=== PATIENT | female | born 1970 | race Caucasian/White ===

== ENCOUNTER 2025-03-16 19:25 | Inpatient (IN) ==
--- NOTE | 2025-03-16 19:55 | Emergency Department Note ---
Impression & Plan Suicide gesture, Drug overdose, Anxiety and depression ED Provider Note NAME: VITOR MUNSON AGE: 55 SEX: F : 1970 ARRIVES VIA: Ambulance INFORMANT: Patient, ED PROVIDER(S): Tony Morrell DO CHIEF COMPLAINT: Overdose HPI: The patient is a 55-year-old female who presented to the emergency department for mental health evaluation. The patient overdosed on her prescription medication at approximately 6 PM. She states that she took approximately 6 tablets of 50 mg trazodone. She states that she did this because of anxiety and stressors today. She was having thoughts of hurting yourself. Her sister notified 911 and the patient arrived via ambulance voluntarily. The patient has been under significant stress about her work. She is also had legal problems and money issues. ROS: See above HPI for pertinent positives & negatives. A total of 10 systems reviewed and were otherwise negative. PAST MEDICAL HISTORY: See Below PAST SURGICAL HISTORY: See Below FAMILY HISTORY: See Below SOCIAL HISTORY: See Below HOME MEDICATIONS: See Below ALLERGIES: See Below VITALS: See Below PHYSICAL EXAMINATION: GENERAL: Patient is awake alert in no acute distress patient is resting comfortably and showing no signs of anxiety EYES: The conjunctivae are clear. The pupils are round and reactive. EARS, NOSE, MOUTH AND THROAT: The nose is without any evidence of any deformity. NECK: The neck is nontender and supple. RESPIRATORY: Normal respiratory effort is noted there is no evidence of wheezing rhonchi or rales CARDIOVASCULAR: Regular rate and rhythm noted there no murmurs rubs or gallops normal S1 normal S2. GASTROINTESTINAL: The abdomen is soft. Abdomen is nontender. MUSCULOSKELETAL/EXTREMITIES: There is no evidence of gross deformity full range of motion is noted in the hips and shoulders. SKIN: There is no obvious evidence of any rash. There are no petechiae, pallor or cyanosis noted. NEUROLOGIC: Patient is awake alert and oriented x3 strength is symmetric patellar reflexes are 2+ bilaterally. Gait was steady PSYCH: The patient makes good eye contact most of the evaluation. The patient's affect is slightly animated. The patient is currently denying any suicidal homicidal ideation but she does recount her attempt to take the medications earlier today. MEDICAL DECISION MAKING: The patient is a 55-year-old female who presented to the emergency department by ambulance for mental-health evaluation. The patient had an episode where she had suicidal ideation. She also took medications in an attempt to hurt herself. The patient was observed in the emergency department for a period of time. She did have some sleepiness but vital signs were reassuring. I discussed the patient's laboratory results with her. I discussed the patient's condition with the [facility]. I discussed the patient's condition with the mental health heel caser. Ultimately the patient was cleared for evaluation. The patient started to have denial that she had a suicidal gesture. The patient was felt to be in need of inpatient treatment. Triage Nursing notes reviewed. Prior medical records reviewed Vital Signs: reviewed and remarkable for no significant abnormalities Differential diagnosis: Mood disorder, infection, hypoglycemia, electrolyte abnormalities, cardiac sources, intracerebral event, toxicologic, trauma, neurologic, as well as other pathologies. ER treatment provided: See below Diagnostics interpreted by me: ECG: EKG was obtained in the emergency department. My interpretation is sinus rhythm at 87 bpm. There is no ectopy. There is no acute ST segment abnormalities noted. This was compared to a tracing from June 06, 2013. No changes were noted. Cardiac Monitoring: An order was placed for continuous cardiac monitoring. The monitor shows a rate of 88 bpm with sinus rhythm. Laboratory studies: As stated above and show below. Imaging studies: See below. Radiographic imaging was reviewed by myself Consultation(s): I discussed this case with the Poison Control Center. I discussed this case with the emergency department with heel caser. The patient was signed out to Dr. Carter at change of shift. Please see his note for continuation of care and further disposition. Past Med/Surg History Problem List (Updated 03/17/25 @ 01:14 by Tony Morrell DO) Anxiety and depression (Acute) Drug overdose (Acute) Suicide gesture (Acute) Medical History Depression with anxiety Surgical History H/O hernia repair (12/03/12) History of cholecystectomy (12/03/12) Previous back surgery (12/03/12) History of gastric bypass Social History Smoking Status: Former smoker Preferred Language: Bulgarian Feels Safe at Home: Yes Gender Identity: Female Allergies Allergies Allergy/AdvReac Type Severity Reaction Status Date / Time Penicillins Allergy Unknown HIVES Unverified 06/06/13 09:48 NSAIDS (Non-Steroidal AdvReac GASTRIC Unverified 06/06/13 09:48 Anti-Inflamma BYPASS Home Meds Home Medications Medication Instructions Recorded Confirmed cyclobenzaprine 10 mg tablet 10 mg PO TID PRN Muscle Pain ##0 06/29/10 03/17/25 gabapentin 600 mg tablet 600 mg PO BID #0 tabs 07/17/12 03/17/25 hydroxyzine HCl 10 mg tablet 25 mg PO TID #0 caps 02/06/13 03/17/25 lamotrigine 25 mg tablet (Lamictal) 25 mg PO 2XD #0 tabs 02/06/13 03/17/25 topiramate 100 mg tablet (Topamax) 100 mg PO DAILY #0 tabs 02/06/13 03/17/25 aspirin 81 mg tablet,delayed 81 mg PO DAILY 03/17/25 03/17/25 release atorvastatin 20 mg tablet (Lipitor) 20 mg PO DAILY 03/17/25 03/17/25 buspirone 30 mg tablet 30 mg PO BID 03/17/25 03/17/25 doxycycline hyclate 100 mg tablet 100 mg PO BID 03/17/25 03/17/25 levothyroxine 25 mcg capsule 25 mcg PO DAILY 03/17/25 03/17/25 linaclotide 145 mcg capsule 145 mcg PO DAILY 03/17/25 03/17/25 (Linzess) omeprazole 40 mg capsule,delayed 40 mg PO BID 03/17/25 03/17/25 release valacyclovir 500 mg tablet 500 mg PO DAILY 03/17/25 03/17/25 (Valtrex) vilazodone 10 mg tablet 30 mg PO DAILY 03/17/25 03/17/25 Results & Data (ED) Vital Signs Vital Signs - 24 hr 03/16/25 19:30 03/16/25 19:42 03/16/25 19:50 Temperature 36.7 C Temperature Source Oral Pulse Rate 82 80 Pulse Rate [Apical] Pulse Rhythm [Apical] Pulse Strength [Apical] Respiratory Rate 18 Respiratory Effort / Characteristics Respiratory Depth Respiratory Pattern Blood Pressure 107/79 Blood Pressure [Right Arm] Blood Pressure Mean 88 Blood Pressure Mean [Right Arm] Blood Pressure Position [Right Arm] Pulse Oximetry 99 98 Oxygen Delivery Method Room Air Room Air Sepsis Recent Fever Within 48 Hours No Sepsis New/Unexplained Change in Mental Status No Sepsis Action Taken by Nursing No Action Required 03/16/25 21:00 03/16/25 22:30 03/16/25 23:57 Temperature Temperature Source Pulse Rate 78 Pulse Rate [Apical] 80 85 Pulse Rhythm [Apical] Pulse Strength [Apical] Respiratory Rate 15 15 Respiratory Effort / Characteristics Non-Labored Spontaneous Non-Labored Spontaneous Respiratory Depth Normal Normal Respiratory Pattern Blood Pressure Blood Pressure [Right Arm] 108/71 107/70 Blood Pressure Mean Blood Pressure Mean [Right Arm] 83 82 Blood Pressure Position [Right Arm] Pulse Oximetry 96 96 Oxygen Delivery Method Room Air Room Air Sepsis Recent Fever Within 48 Hours Sepsis New/Unexplained Change in Mental Status Sepsis Action Taken by Nursing 03/17/25 00:00 Temperature Temperature Source Pulse Rate Pulse Rate [Apical] 76 Pulse Rhythm [Apical] Regular Pulse Strength [Apical] Normal Respiratory Rate 16 Respiratory Effort / Characteristics Non-Labored Spontaneous Respiratory Depth Normal Respiratory Pattern Regular Blood Pressure Blood Pressure [Right Arm] 106/72 Blood Pressure Mean Blood Pressure Mean [Right Arm] 83 Blood Pressure Position [Right Arm] Lying Pulse Oximetry 95 Oxygen Delivery Method Room Air Sepsis Recent Fever Within 48 Hours Sepsis New/Unexplained Change in Mental Status Sepsis Action Taken by [facility] Medications Current Medication List: was personally reviewed by me Laboratory Data Attestation: I reviewed the patient's lab results. 03/16/25 19:39 03/16/25 19:39 Lab Results 03/16/25 03/16/25 Range/Units 19:39 19:46 WBC 5.90 (4.8-10.8) K/ul RBC 4.07 L (4.20-5.40) M/uL Hgb 13.7 (12.0-16.0) g/dl Hct 41.2 (37.0-47.0) % MCV 101.2 H (80.0-100.0) fL MCH 33.7 (25.0-34.0) pg MCHC 33.3 (32.0-36.0) g/dL RDW Std Deviation 43.9 (36.4-46.3) fL RDW Coeff of Velia 11.8 (11.5-14.5) % Plt Count 216 (130-400) K/uL MPV 9.3 L (9.4-12.4) fL Immature Gran % (Auto) 0.3 % Neut % (Auto) 54.1 % Lymph % (Auto) 37.6 % [place] % (Auto) 5.3 % Eos % (Auto) 2.0 % Baso % (Auto) 0.7 % Neut # (Auto) 3.19 (1.40-6.50) K/uL Lymph # (Auto) 2.22 (1.20-3.40) K/uL [place] # (Auto) 0.31 (0.11-0.59) K/uL Eos # (Auto) 0.12 (0.00-0.50) K/uL Baso # (Auto) 0.04 (0.00-0.20) K/uL Immature Gran # (Auto) 0.02 (0.01-0.20) K/uL Sodium 141 (136-145) mmol/L Potassium 3.4 L (3.5-5.1) mmol/L Chloride 109 H (98-107) mmol/L Carbon Dioxide 25 (21-32) mmol/L Anion Gap 7 (3-11) BUN 8 (6-23) mg/dl Creatinine 0.91 (0.6-1.2) mg/dl Est Cr Clr Drug Dosing 66.6 ml/min eGFR 75.44 BUN/Creatinine Ratio 8.8 L (10-20) Glucose 122 H (70-99(Fasting)) mg/dl Calcium 9.1 (8.6-10.3) mg/dl Total Bilirubin 0.4 (0.2-1.0) mg/dl AST 36 (13-39) U/L ALT 36 (7-52) U/L Alkaline Phosphatase 55 (34-104) U/L Total Protein 6.4 (6.0-8.3) gm/dl Albumin 4.2 (3.4-5.0) gm/dl Globulin 2.2 L (2.5-4.0) gm/dl Albumin/Globulin Ratio 1.9 (0.9-2) TSH 2.402 (0.300-4.500) uIu/ml Urine Color Dark Yellow Urine Appearance Clear (Clear) Urine pH 6.5 (4.5-7.5) Ur Specific [place] 1.011 (1.000-1.030) Urine Protein Negative (Negative) Urine Glucose (UA) Negative (Negative) Urine Ketones Negative (Negative) Urine Blood Negative (Negative) Urine Nitrite Negative (Negative) Urine Bilirubin Negative (Negative) Urine Urobilinogen Negative (Negative) Ur Leukocyte Esterase Trace H (Negative) Urine WBC (Auto) 0-5 (0-5) /hpf Urine RBC (Auto) 0-2 (0-2) /hpf U Hyaline Cast (Auto) 0-2 (0-2) /lpf U Epithel Cells (Auto) 0-2 (0-2) /hpf Urine Bacteria (Auto) None Seen (None Seen) Urine Test Negative (Negative) Urine Comment Salicylates < 3.0 L (3.0-30) mg/dl Urine Opiates Screen Neg (Neg) Ur Methadone, Qual Neg (Neg) Urine Fentanyl Screen Neg (Neg) Acetaminophen < 3 L (10-30) ug/ml Urine Barbiturates Neg (Neg) Ur Phencyclidine (PCP) Neg (Neg) U Amphetamin/Meth Scrn Neg (Neg) MDMA (Ecstasy) Screen Pos H (Neg) U Benzodiazepines Scrn Neg (Neg) Ur Cocaine Metabolite Neg (Neg) U Marijuana (THC) Screen Pos H (Neg) Ethyl Alcohol mg/dL < 10.0 (<10.0) mg/dl SARS-CoV-2, RNA, NAAT NEGATIVE (NEGATIVE) Discharge Plan Visit Data Chief Complaint: Overdose (Intentional) Stated Complaint: OVERDOSE ED Provider: Tony Morrell Discharge Problem: Suicide gesture, Drug overdose, Anxiety and depression Patient Disposition: Still a Patient Condition: Fair Forms Stand Alone Forms: My [facility], Suicide Prevention Resources Prescriptions Prescriptions: No Action cyclobenzaprine [Flexeril] 10 mg Tablet 10 mg PO TID PRN (Reason: Muscle Pain) Qty: 0 Patient Comments: PRN gabapentin 600 mg Tablet 600 mg PO BID Qty: 0 Rx Instructions: 2 tablets in the morning and 4 tablets at night lamotrigine [Lamictal] 25 mg Tablet 25 mg PO 2XD Qty: 0 hydroxyzine HCl 25 mg Tablet 25 mg PO TID Qty: 0 topiramate [Topamax] 100 mg Tablet 100 mg PO DAILY Qty: 0 atorvastatin [Lipitor] 20 mg Tablet 20 mg PO DAILY valacyclovir [Valtrex] 500 mg Tablet 500 mg PO DAILY omeprazole 40 mg Capsule,Delayed Release(Dr/Ec) 40 mg PO BID aspirin [Aspir-81] 81 mg Tablet,Delayed Release (Dr/Ec) 81 mg PO DAILY buspirone 30 mg Tablet 30 mg PO BID doxycycline hyclate 100 mg Tablet 100 mg PO BID levothyroxine 25 mcg Capsule 25 mcg PO DAILY vilazodone 10 mg Tablet 30 mg PO DAILY Rx Instructions: must administer with a meal/food Linzess 145 mcg Capsule 145 mcg PO DAILY Referrals Referrals: PCP,NO [Primary Care Provider] -
[2025-03-16 20:00] LABS: Appearance Urine Clear (Clear); Bacteria Urine Automated None Seen (None Seen); Bilirubin Urine Negative (Negative); Blood Urine Negative (Negative); Cast Urine Automated 0-2 /lpf (0-2); Color Urine Dark Yellow; Epithelial Cell Urine Auto 0-2 /hpf (0-2); Glucose Urine UA Negative (Negative); Ketones Urine Negative (Negative); Leukocyte Esterase Urine Trace (Negative); Nitrite Urine Negative (Negative); Protein Urine Negative (Negative); RBC Urine Automated 0-2 /hpf (0-2); Specific Gravity Urine 1.011 (1.000-1.030); Urobilinogen Urine Negative (Negative); WBC Urine Automated 0-5 /hpf (0-5); pH Urine 6.5 (4.5-7.5)
[2025-03-16 20:12] LABS: Albumin Globulin Ratio 1.9 (0.9-2); Albumin Level 4.2 gm/dl (3.4-5.0); BUN Creatinine Ratio 8.8 (10-20); Bilirubin,Total 0.4 mg/dl (0.2-1.0); Calcium 9.1 mg/dl (8.6-10.3); Creatinine Clr Calc Pharmacy 66.6 ml/min; Globulin 2.2 gm/dl (2.5-4.0); Potassium 3.4 mmol/L (3.5-5.1); Total Protein 6.4 gm/dl (6.0-8.3)
[2025-03-16 20:14] LABS: Acetaminophen < 3 ug/ml (10-30); Salicylate < 3.0 mg/dl (3.0-30)
[2025-03-16 20:27] LABS: Thyroid Stimulating Hormone 2.402 uIu/ml (0.300-4.500)
[2025-03-16 20:41] LABS: Amphetamines+Metham, Urine Neg (Neg); Barbiturates, Urine Neg (Neg); Benzodiazepine, Urine Neg (Neg); Cocaine, Urine Neg (Neg); Fentanyl, Urine Neg (Neg); MDMA (Ecstacy), Urine Pos (Neg); Marijuana, Urine Pos (Neg); Methadone, Urine Neg (Neg); Opiate, Urine Neg (Neg); Phencyclidine, Urine Neg (Neg)
[2025-03-16 21:14] LABS: Basophils # (auto) 0.04 K/uL (0.00-0.20); Basophils % (auto) 0.7 %; Eosinophils # (auto) 0.12 K/uL (0.00-0.50); Hematocrit (blood only) 41.2 % (37.0-47.0); Hemoglobin 13.7 g/dl (12.0-16.0); Immature Granulocytes # (auto) 0.02 K/uL (0.01-0.20); Immature Granulocytes % (auto) 0.3 %; Lymphocytes # (auto) 2.22 K/uL (1.20-3.40); Lymphocytes % (auto) 37.6 %; Mean Corpuscular Hemoglobin 33.7 pg (25.0-34.0); Mean Corpuscular Hgb Conc 33.3 g/dL (32.0-36.0); Mean Corpuscular Volume 101.2 fL (80.0-100.0); Mean Platelet Volume 9.3 fL (9.4-12.4); Monocytes # (auto) 0.31 K/uL (0.11-0.59); Monocytes % (auto) 5.3 %; Neutrophils # (auto) 3.19 K/uL (1.40-6.50); Neutrophils % (auto) 54.1 %; Platelet Count 216 K/uL (130-400); RDW Coefficient of Variation 11.8 % (11.5-14.5); RDW Standard Deviation 43.9 fL (36.4-46.3); Red Blood Count 4.07 M/uL (4.20-5.40)
[2025-03-17 01:04] LABS: Pregnancy Test, Urine Negative (Negative)
[2025-03-17] MEDS ORDERED: CYCLOBENZAPRINE HCL 10 MG TAB PO PRN (01:35)
--- NOTE | 2025-03-17 03:00 | Emergency Department Note ---
ED Visit Note Received this patient in signout from Dr. Morrlel. See his note for full details. In short, patient overdosed on trazodone earlier and mental status has cleared and was evaluated regarding this. See prior notes for full details but 302 has been completed with concerns this was an intentional act to harm herself. Bed search has been initiated. Case management assisting. Patient evaluated by [facility] and accepted for further inpatient care there. Given a dose of her home BuSpar and gabapentin prior to going there early this morning. .
[2025-03-17] MEDS: GABAPENTIN 600 MG TAB PO STA (03:25)
[2025-03-17] MEDS: busPIRone 15 MG TAB PO ONE (03:29)
--- NOTE | 2025-03-17 06:37 | Electrocardiogram Report ---
Test Reason : Blood Pressure : */* mmHG Vent. Rate : 87 BPM Atrial Rate : 87 BPM P-R Int : 160 ms QRS Dur : 78 ms QT Int : 384 ms P-R-T Axes : 184 3 -25 degrees QTcB Int : 462 ms Unusual P axis, possible ectopic atrial rhythm Low voltage QRS Abnormal ECG When compared with ECG of 06-Jun-2013 09:45, Ectopic atrial rhythm has replaced Sinus rhythm Confirmed by Tree Steinberg ([id number]) on 03/17/2025 6:36:47 AM Referred By: REFERRED SELF Confirmed By: Tree Steinberg
[2025-03-17] MEDS ORDERED: ALUMINUM/MAGNESIUM SUSP 30 ML UDC PO PRN (07:01)
[2025-03-17] MEDS ORDERED: BISMUTH SUBSALICYLATE 262 MG CHEW PO PRN (07:01)
[2025-03-17] MEDS ORDERED: SODIUM CHLORIDE 0.65% NA SOLN 45 ML (OCEAN) PRN (07:01)
[2025-03-17] MEDS ORDERED: hydrOXYzine HCl 25 MG TAB PO PRN ×2 (07:01)
[2025-03-17] MEDS ORDERED: LEVOTHYROXINE SODIUM 25 MCG TABLET PO SCH (08:00)
[2025-03-17] MEDS ORDERED: hydrOXYzine HCl 10 MG TAB PO SCH (09:00)
[2025-03-17] MEDS ORDERED: GABAPENTIN 600 MG TAB PO SCH (09:00)
[2025-03-17] MEDS ORDERED: ASPIRIN 81 MG ECTAB PO SCH (09:00)
[2025-03-17] MEDS ORDERED: ATORVASTATIN 20 MG TAB PO SCH (09:00)
[2025-03-17] MEDS ORDERED: PANTOprazole 40 MG TAB PO SCH (09:00)
[2025-03-17] MEDS ORDERED: TOPIRAMATE 100 MG TAB PO SCH (09:00)
[2025-03-17] MEDS ORDERED: LINACLOTIDE 145 MCG CAPSULE PO SCH (09:00)
[2025-03-17] MEDS ORDERED: lamoTRIgine 25 MG TAB PO SCH (09:00)
[2025-03-17] MEDS ORDERED: busPIRone 15 MG TAB PO SCH (09:00)
[2025-03-17] MEDS ORDERED: hydrOXYzine HCl 25 MG TAB PO SCH (09:00)
[2025-03-17] MEDS ORDERED: VILAZODONE HCL 1 EA PO SCH (09:00)
[2025-03-17] MEDS ORDERED: NON-FORMULARY PATIENT'S OWN MED SCH (09:00)
[2025-03-17] MEDS: GABAPENTIN 600 MG TAB PO SCH ×2 (10:31→21:16)
[2025-03-17] MEDS: busPIRone 15 MG TAB PO SCH (10:31)
[2025-03-17] MEDS: valACYclovir HCL 500 MG TABLET PO SCH (10:32)
[2025-03-17] MEDS: lamoTRIgine 25 MG TAB PO SCH (10:33)
[2025-03-17] MEDS: TOPIRAMATE 100 MG TAB PO SCH (10:33)
[2025-03-17] MEDS: ATORVASTATIN 20 MG TAB PO SCH (10:33)
[2025-03-17] MEDS: ASPIRIN 81 MG ECTAB PO SCH (10:34)
[2025-03-17] MEDS: LINACLOTIDE 145 MCG CAPSULE PO SCH (10:34)
[2025-03-17] MEDS: CYCLOBENZAPRINE HCL 10 MG TAB PO PRN (10:47)
[2025-03-17] MEDS: DOXYCYCLINE HYCLATE 100 MG CAP PO SCH (12:12)
[2025-03-17] MEDS: ONDANSETRON 4 MG OD TAB PO PRN (12:13)
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
[2025-03-17] MEDS: lamoTRIgine 100 MG TAB PO SCH (17:26)
[2025-03-17] MEDS: CHOLECALCIFEROL 125 MCG (5,000 UNITS) TAB PO SCH (17:27)
[2025-03-17] MEDS: MULTIVITAMIN CHEWABLE TAB PO SCH (17:27)
[2025-03-17] MEDS: CYANOCOBALAMIN (B-12) 100 MCG TABLET PO SCH (17:27)
[2025-03-17] MEDS: NICOTINE POLACRILEX 2 MG GUM MT PRN (18:52)
[2025-03-17] MEDS: clonazePAM 0.5 MG TAB PO SCH (21:16)
[2025-03-17] MEDS: TOPIRAMATE 50 MG TAB PO SCH (21:16)
[2025-03-18 07:25] LABS: Chol HDL Ratio 1.8 (0-5)
[2025-03-18] MEDS: CYCLOBENZAPRINE HCL 10 MG TAB PO PRN (07:35)
[2025-03-18 07:43] LABS: Estimated Average Glucose 108 mg/dl; Hemoglobin A1C 5.4 % (4.5-5.6)
[2025-03-18] MEDS: LEVOTHYROXINE SODIUM 25 MCG TABLET PO SCH (09:04)
[2025-03-18] MEDS: PSYLLIUM HUSK 4GM PACKET PO SCH (12:33)
[2025-03-18] MEDS: IBUPROFEN 200 MG TAB PO ONE (12:33)
--- NOTE | 2025-03-18 13:45 | Psychiatric Progress Note ---
Date of Service March 18, 2025 Impression / Recommendations Impression VITOR MUNSON is a 55-year-old F who currently lives with sister, has a history of bipolar 1 disorder, and was admitted on 03/17/25 03:12 on a 302 involuntary commitment for suicide attempt. Patient presents with recent suicidal gestures likely as impulsive and attention seeking in the context of family dispute. Patient denies any acute needs however family concerned for increased impulsivity, hyperactivity, promiscuity, anger outbursts. Recent stressors of nephew committing suicide and cancer dx in sister. Differential includes bipolar 1 aicha vs exacerbated symptoms of borderline PD. Patient presenting good sleep overnight. Continues to be hyperverbal and circumstantial, however may be her baseline behavior. No signs of psychosis or overt signs of aicha. Possible mild aicha vs exacerbated BPD. May benefit from engagement in IOP given problematic behaviors and emotional instability. MNPR due to aicha concerns Overall, I spent a total of 40 minutes with this case including review of chart records, nursing report, review of lab work, direct evaluation of the patient at bedside, counseling the patient, multidisciplinary team meeting, orders, and documentation in the electronic health record. (1) Suicide gesture: (2) Bipolar 1 disorder: (3) Borderline personality disorder: Plan 03/18/25: -Daily fiber supplement -Restart home buspirone 30mg bid 03/17/25: The patient was admitted to the [facility] ([facility] mental health unit) on q15 min checks (behavioral with suicide precautions) for safety. The patient will participate in group, recreational, and milieu therapies and will be offered additional individual and family sessions as clinically appropriate. -Resume home medications -Hold home vilazodone -Increase topiramate to 100mg QAM, 50mg HS -Labs: A1c, fasting lipids, Vit D, Vit B12 -Questionaires: MDQ, [place] borderline PD screener Inventory Assets Strengths: fair historian, assertive Needs: improved insight, less risk taking behavior Suicide Risk Level Suicide Risk Level: Moderate (q15 min suicide checks) Risk Factors Assessment Male: No : Yes Do You Have Access To A Gun?: No Health Problems: Yes Mental Health Diagnoses: Yes Substance Use Disorders: No Previous Attempt: No Family History of Suicide: No Previous Psychiatric Hospitalization: Yes Hopelessness: No Protective Factors Assessment Taoism Beliefs: No : No Responsible for Young Children: No Employed: Yes (supposed to start a job at [employer] tomorrow) Stable Relationships: No Supportive Family: Yes Good Rapport with Provider: Yes Absence of Any Risk Factors Above: No Interval History Chief Complaint Anxiety Review of Systems Sleep Information Total Hours of Sleep: 7 Sleep Comments: admitted at 0330 Meal Information Percent Meal Consumed - Breakfast: 100 Percent Meal Consumed - Lunch: 90 Percent Meal Consumed - Dinner: 75 Subjective Subjective Patient was seen & assessed and interval progress reviewed with treatment team aaliyah jean and social work The patient reports sleeping well. Nursing documented 7 hours. Feels safe. Reports "great energy" and says that this is her baseline. talkative on interview. She feels safe. Contemplating where she should go next weather and will be with her mother or her sister. She denies SI. Reports no past depression or history of depression and teenage years. 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 Denies impact on sleep. Potentially interested in intensive outpatient program. Engaging in good self- care. Physical Exam Mental Examination Appearance: Disheveled (dyed red hair) Eye Contact: Fleeting Contact Motor Behavior: Unremarkable Speech: Excessive Mood: Happy and Sad Affect: Congruent and Labile (less today) Thought Process: Intact and Circumstantial Thought Content: Intact and Linear Hallucinations: None Insight: Poor (to limited) Judgement: Poor Vital Signs (Past 24 Hours) Last Vital Signs Temp 36.4 C L 03/18/25 06:25 Pulse 60 03/18/25 06:26 Resp 16 03/18/25 06:25 BP 97/66 L 03/18/25 06:26 Pulse Ox 96 03/17/25 03:53 O2 Del Method Room Air 03/17/25 03:53 Results & Data ([facility]) Laboratory Results Laboratory Results - last 24 hr 03/18/25 06:47 Estimat Average Glucose 108 Hemoglobin A1c 5.4 Triglycerides 72 Cholesterol 162 LDL Cholesterol, Calc 57 VLDL Cholesterol, Calc 14 HDL Cholesterol 91 Cholesterol/HDL Ratio 1.8 Vitamin B12 457 25-OH Vitamin D Total 34.6 Current Inpatient Medications Current Inpatient Medications: Current Inpatient Medications Acetaminophen (Acetaminophen 325 Mg Tab) 650 mg PO Q4H PRN PRN Reason: Headache or Minor Fever Stop: 04/16/25 07:00 Al Hydrox/Mg Hydrox/Simethicone (Aluminum/Magnesium Susp 30 Ml Udc) 30 ml PO Q4H PRN PRN Reason: GI Upset Stop: 04/16/25 07:00 Aspirin (Aspirin 81 Mg Ectab) 81 mg PO QAM [facility] Stop: 04/16/25 09:59 Last Admin: 03/18/25 09:04 Dose: 81 mg Atorvastatin Calcium (Atorvastatin 20 Mg Tab) 20 mg PO QAM [facility] Stop: 04/16/25 09:59 Last Admin: 03/18/25 09:05 Dose: 20 mg Bismuth Subsalicylate (Bismuth Subsalicylate 262 Mg Chew) 2 tab PO Q30M PRN PRN Reason: Loose Stool/Diarrhea Stop: 04/16/25 07:00 Buspirone HCl (Buspirone 15 Mg Tab) 30 mg PO BID [facility] Stop: 04/17/25 20:59 Clonazepam (Clonazepam 0.5 Mg Tab) 0.5 mg PO HS [facility] Stop: 04/16/25 21:59 Last Admin: 03/17/25 21:16 Dose: 0.5 mg Cyanocobalamin (Cyanocobalamin (B-12) 100 Mcg Tablet) 100 mcg PO QAM [facility] Stop: 04/16/25 16:14 Last Admin: 03/18/25 09:04 Dose: 100 mcg Cyclobenzaprine HCl (Cyclobenzaprine Hcl 10 Mg Tab) 10 mg PO BID PRN PRN Reason: Pain Stop: 04/16/25 09:49 Last Admin: 03/18/25 07:35 Dose: 10 mg Doxycycline Hyclate (Doxycycline Hyclate 100 Mg Cap) 100 mg PO BID [facility] Stop: 03/27/25 11:59 Last Admin: 03/18/25 09:02 Dose: 100 mg Gabapentin (Gabapentin 600 Mg Tab) 600 mg PO TID [facility] Stop: 04/16/25 20:59 Last Admin: 03/18/25 09:04 Dose: 600 mg Hydroxyzine HCl (Hydroxyzine Hcl 25 Mg Tab) 50 mg PO HSZ PRN PRN Reason: Insomnia Stop: 04/16/25 07:00 Hydroxyzine HCl (Hydroxyzine Hcl 25 Mg Tab) 25 mg PO Q4H PRN PRN Reason: Anxiety Stop: 04/16/25 07:00 Lamotrigine (Lamotrigine 100 Mg Tab) 150 mg PO DAILY [facility]; Protocol Stop: 04/16/25 15:59 Last Admin: 03/18/25 09:05 Dose: 150 mg Levothyroxine Sodium (Levothyroxine Sodium 25 Mcg Tablet) 25 mcg PO DAILYBB [facility] Stop: 04/17/25 07:59 Last Admin: 03/18/25 09:04 Dose: 25 mcg Magnesium Hydroxide (Magnesium Hydroxide Susp 30 Ml Udc) 30 ml PO DAILY PRN PRN Reason: Constipation Stop: 04/16/25 07:00 Multivitamins/Folic Acid/Vitamin C (Multivitamin Chewable Tab) 1 tab PO QAM [facility] Stop: 04/16/25 16:14 Last Admin: 03/18/25 09:03 Dose: 1 tab Nicotine Polacrilex (Nicotine Polacrilex 2 Mg Gum) 1 piece MT Q2H PRN PRN Reason: Smoking Cessation Stop: 04/16/25 18:35 Last Admin: 03/17/25 18:52 Dose: 1 piece Ondansetron HCl (Ondansetron 4 Mg Od Tab) 4 mg PO Q6H PRN PRN Reason: Nausea Stop: 04/16/25 10:04 Last Admin: 03/18/25 09:08 Dose: 4 mg Psyllium Hydrophilic Mucilloid (Psyllium Husk 4gm Packet) 4 gm PO QAM [facility] Stop: 04/17/25 12:29 Last Admin: 03/18/25 12:33 Dose: 4 gm Sodium Chloride (Sodium Chloride 0.65% Na Soln 45 Ml ([place])) 1 - 2 sprays NA PRN PRN PRN Reason: Nasal Dryness/Congestion Stop: 04/16/25 07:00 Topiramate (Topiramate 100 Mg Tab) 100 mg PO QAM [facility] Stop: 04/16/25 09:59 Last Admin: 03/18/25 09:05 Dose: 100 mg Topiramate (Topiramate 50 Mg Tab) 50 mg PO HS [facility] Stop: 04/16/25 21:59 Last Admin: 03/17/25 21:16 Dose: 50 mg Valacyclovir HCl (Valacyclovir Hcl 500 Mg Tablet) 500 mg PO DAILY [facility] Stop: 03/27/25 09:44 Last Admin: 03/18/25 09:03 Dose: 500 mg Vitamin D (Cholecalciferol 125 Mcg (5,000 Units) Tab) 125 mcg PO QAM [facility] Stop: 04/16/25 16:14 Last Admin: 03/18/25 09:06 Dose: 125 mcg Mental Health & Subst Abuse Tx Therapist Name of Therapist: currently in between therapists Post Discharge Appointments Primary Care Physician Name Of Family Doctor/PCP: Dr. Bel SWANN
[2025-03-18] MEDS: busPIRone 15 MG TAB PO SCH (20:50)
[2025-03-19] MEDS: MAGNESIUM HYDROXIDE SUSP 30 ML UDC PO PRN (05:39)
[2025-03-19] MEDS: ACETAMINOPHEN 325 MG TAB PO PRN (07:29)
[2025-03-19] MEDS: PANTOprazole 40 MG TAB PO SCH (09:41)
[2025-03-19] MEDS: SENNA 8.6 MG TAB PO ONE (13:01)
[2025-03-19] MEDS: SIMETHICONE 80 MG CHEW PO ONE (13:01)
--- NOTE | 2025-03-19 14:46 | Psychiatric Progress Note ---
Date of Service March 19, 2025 Impression / Recommendations Impression VITOR MUNSON is a 55-year-old F who currently lives with sister, has a history of bipolar 1 disorder, and was admitted on 03/17/25 03:12 on a 302 involuntary commitment for suicide attempt. Patient presents with recent suicidal gestures likely as impulsive and attention seeking in the context of family dispute. Patient denies any acute needs however family concerned for increased impulsivity, hyperactivity, promiscuity, anger outbursts. Recent stressors of nephew committing suicide and cancer dx in sister. Differential includes bipolar 1 aicha vs exacerbated symptoms of borderline PD. A: Patient presenting good sleep overnight. Less labile. No inappropriate behaviors on the unit. Continues to be energetic and hyperverbal; however may be baseline behavior. Concern for mild aicha and exacerbated BPD. Pt counseled about processing recent stressors, concern for aicha, and voiced acceptance of condition and medication plan. On-going constipation issue. MNPR due to aicha concerns Overall, I spent a total of 40 minutes with this case including review of chart records, nursing report, review of lab work, direct evaluation of the patient at bedside, counseling the patient, multidisciplinary team meeting, orders, and documentation in the electronic health record. (1) Suicide gesture: (2) Bipolar 1 disorder: (3) Borderline personality disorder: Plan 03/19/25: -Senna and simethicone one time -Increase topirmate to 100mg HS 03/18/25: -Daily fiber supplement -Restart home buspirone 30mg bid 03/17/25: The patient was admitted to the [facility] ([facility] [place] [facility]) on q15 min checks (behavioral with suicide precautions) for safety. The patient will participate in group, recreational, and milieu therapies and will be offered additional individual and family sessions as clinically appropriate. -Resume home medications -Hold home vilazodone -Increase topiramate to 100mg QAM, 50mg HS -Labs: A1c, fasting lipids, Vit D, Vit B12 -Questionaires: MDQ, [place] borderline PD screener Inventory Assets Strengths: fair historian, assertive Needs: improved insight, less risk taking behavior Suicide Risk Level Suicide Risk Level: Moderate (q15 min suicide checks) Risk Factors Assessment Male: No : Yes Do You Have Access To A Gun?: No Health Problems: Yes Mental Health Diagnoses: Yes Substance Use Disorders: No Previous Attempt: No Family History of Suicide: No Previous Psychiatric Hospitalization: Yes Hopelessness: No Protective Factors Assessment Buddhism Beliefs: No : No Responsible for Young Children: No Employed: Yes (supposed to start a job at [employer] tomorrow) Stable Relationships: No Supportive Family: Yes Good Rapport with Provider: Yes Absence of Any Risk Factors Above: No Interval History Chief Complaint Aicha, anxiety Review of Systems Sleep Information Total Hours of Sleep: 6 Sleep Comments: Awoke early Meal Information Percent Meal Consumed - Breakfast: 100 Percent Meal Consumed - Lunch: 90 Percent Meal Consumed - Dinner: 100 Subjective Subjective Patient was seen & assessed and interval progress reviewed with treatment team nursing and social work Patient slept 6 hours overnight. She feels rested. Fair energy. On interview she discusses how she wants to get a hip replacement. Often tangential and rambling but able to be redirected. Reports that she was acting "manic" prior to admission. Brought up some of the concerns for family had she adamantly denied them. Counseled about how she has dealt with recent traumatic stressors and may be presenting with mild aicha and was agreeable to this idea. She voiced a plan to stay adherent to the discharge plan. No recent bowel movement and complains of increased bloating. Reports at baseline has bowel movements every 2 to 3 days. Physical Exam Mental Examination Appearance: Well Groomed Eye Contact: Maintains Eye Contact Motor Behavior: Unremarkable Speech: Excessive Mood: Euthymic and Calm Affect: Congruent Thought Process: Intact, Circumstantial and Tangential Thought Content: Intact and Linear Hallucinations: None Insight: Poor (to limited) Judgement: Poor (to limited, improving) Vital Signs (Past 24 Hours) Last Vital Signs Temp 36.3 C L 03/19/25 06:36 Pulse 71 03/19/25 06:36 Resp 22 03/19/25 06:36 BP 94/65 L 03/19/25 06:37 Pulse Ox 100 03/19/25 06:36 O2 Del Method Room Air 03/19/25 06:36 Results & Data ([facility]) Current Inpatient Medications Current Inpatient Medications: Current Inpatient Medications Acetaminophen (Acetaminophen 325 Mg Tab) 650 mg PO Q4H PRN PRN Reason: Headache or Minor Fever Stop: 04/16/25 07:00 Last Admin: 03/19/25 07:29 Dose: 650 mg Al Hydrox/Mg Hydrox/Simethicone (Aluminum/Magnesium Susp 30 Ml Udc) 30 ml PO Q4H PRN PRN Reason: GI Upset Stop: 04/16/25 07:00 Aspirin (Aspirin 81 Mg Ectab) 81 mg PO QAM [facility] Stop: 04/16/25 09:59 Last Admin: 03/19/25 08:40 Dose: 81 mg Atorvastatin Calcium (Atorvastatin 20 Mg Tab) 20 mg PO QAM [facility] Stop: 04/16/25 09:59 Last Admin: 03/19/25 08:41 Dose: 20 mg Bismuth Subsalicylate (Bismuth Subsalicylate 262 Mg Chew) 2 tab PO Q30M PRN PRN Reason: Loose Stool/Diarrhea Stop: 04/16/25 07:00 Buspirone HCl (Buspirone 15 Mg Tab) 30 mg PO BID [facility] Stop: 04/17/25 20:59 Last Admin: 03/19/25 08:41 Dose: 30 mg Clonazepam (Clonazepam 0.5 Mg Tab) 0.5 mg PO HS [facility] Stop: 04/16/25 21:59 Last Admin: 03/18/25 20:49 Dose: 0.5 mg Cyanocobalamin (Cyanocobalamin (B-12) 100 Mcg Tablet) 100 mcg PO QAM [facility] Stop: 04/16/25 16:14 Last Admin: 03/19/25 08:42 Dose: 100 mcg Cyclobenzaprine HCl (Cyclobenzaprine Hcl 10 Mg Tab) 10 mg PO BID PRN PRN Reason: Pain Stop: 04/16/25 09:49 Last Admin: 03/19/25 06:11 Dose: 10 mg Doxycycline Hyclate (Doxycycline Hyclate 100 Mg Cap) 100 mg PO BID [facility] Stop: 03/27/25 11:59 Last Admin: 03/19/25 08:42 Dose: 100 mg Gabapentin (Gabapentin 600 Mg Tab) 600 mg PO TID [facility] Stop: 04/16/25 20:59 Last Admin: 03/19/25 13:01 Dose: 600 mg Hydroxyzine HCl (Hydroxyzine Hcl 25 Mg Tab) 50 mg PO HSZ PRN PRN Reason: Insomnia Stop: 04/16/25 07:00 Hydroxyzine HCl (Hydroxyzine Hcl 25 Mg Tab) 25 mg PO Q4H PRN PRN Reason: Anxiety Stop: 04/16/25 07:00 Lamotrigine (Lamotrigine 100 Mg Tab) 150 mg PO DAILY [facility]; Protocol Stop: 04/16/25 15:59 Last Admin: 03/19/25 08:43 Dose: 150 mg Levothyroxine Sodium (Levothyroxine Sodium 25 Mcg Tablet) [facility] Stop: 04/17/25 07:59 Last Admin: 03/19/25 08:40 Dose: 25 mcg Magnesium Hydroxide (Magnesium Hydroxide Susp 30 Ml Udc) 30 ml PO DAILY PRN PRN Reason: Constipation Stop: 04/16/25 07:00 Last Admin: 03/19/25 05:39 Dose: 30 ml Multivitamins/Folic Acid/Vitamin C (Multivitamin Chewable Tab) [facility] [place] Stop: 04/16/25 16:14 Last Admin: 03/19/25 08:44 Dose: 1 tab Nicotine Polacrilex (Nicotine Polacrilex 2 Mg Gum) 1 piece MT Q2H PRN PRN Reason: Smoking Cessation Stop: 04/16/25 18:35 Last Admin: 03/17/25 18:52 Dose: 1 piece Ondansetron HCl (Ondansetron 4 Mg Od Tab) 4 mg PO Q6H PRN PRN Reason: Nausea Stop: 04/16/25 10:04 Last Admin: 03/19/25 09:00 Dose: 4 mg Pantoprazole Sodium (Pantoprazole 40 Mg Tab) 40 [facility] [place] Stop: 04/18/25 09:14 Last Admin: 03/19/25 09:41 Dose: 40 mg Psyllium Hydrophilic Mucilloid (Psyllium Husk 4gm Packet) 4 gm [facility] [place] Stop: 04/17/25 12:29 Last Admin: 03/19/25 08:45 Dose: 4 gm Sodium Chloride (Sodium Chloride 0.65% Na Soln 45 Ml ([place])) 1 - 2 sprays NA PRN PRN PRN Reason: Nasal Dryness/Congestion Stop: 04/16/25 07:00 Topiramate (Topiramate 100 Mg Tab) 100 [facility] [place] Stop: 04/16/25 09:59 Last Admin: 03/19/25 08:44 Dose: 100 mg Topiramate (Topiramate 100 Mg Tab) 100 mg PO [facility] Stop: 04/18/25 21:59 Valacyclovir HCl (Valacyclovir Hcl 500 Mg Tablet) 500 mg PO DAILY [facility] Stop: 03/27/25 09:44 Last Admin: 03/19/25 08:46 Dose: 500 mg Vitamin D (Cholecalciferol 125 Mcg (5,000 Units) Tab) 125 mcg PO QAM [facility] Stop: 04/16/25 16:14 Last Admin: 03/19/25 08:42 Dose: 125 mcg Mental Health & Subst Abuse Tx Psychiatrist Name of Psychiatrist: Sandra Aguirre Psychiatrist's Phone Number: [phone] Date Of Appointment With Psychiatric Provider: 03/24/2025 Time of Appointment with Psychiatrist: 13:00 Psychiatrist Release of Information: Obtained Therapist Name of Therapist: Senthil Corey Therapist's Phone Number: [phone] Date of Therapist Appointment: 03/25/2025 Time of Therapist Appointment: 10:30 Therapist Release of Information: Obtained Post Discharge Appointments Primary Care Physician Name Of Family Doctor/PCP: Dr. Bel SWANN
[2025-03-19] MEDS: TOPIRAMATE 100 MG TAB PO SCH (21:24)
--- NOTE | 2025-03-20 12:34 | Psychiatric Progress Note ---
Date of Service March 20, 2025 Impression / Recommendations Impression VITOR MUNSON is a 55-year-old F who currently lives with sister, has a history of bipolar 1 disorder, and was admitted on 03/17/25 03:12 on a 302 involuntary commitment for suicide attempt. Patient presents with recent suicidal gestures likely as impulsive and attention seeking in the context of family dispute. Patient denies any acute needs however family concerned for increased impulsivity, hyperactivity, promiscuity, anger outbursts. Recent stressors of nephew committing suicide and cancer dx in sister. Differential includes bipolar 1 aicha vs exacerbated symptoms of borderline PD. A: Patient presenting good sleep overnight. Less labile. No inappropriate behaviors on the unit. Stable mood. Encouraged IOP and to hold off on restarting antidepressant post discharge. MNPR due to aicha concerns Overall, I spent a total of 40 minutes with this case including review of chart records, nursing report, review of lab work, direct evaluation of the patient at bedside, counseling the patient, multidisciplinary team meeting, orders, speaking with family and documentation in the electronic health record. (1) Suicide gesture: (2) Bipolar 1 disorder: (3) Borderline personality disorder: Plan 03/20/25: Continue medications and treatment plan 03/19/25: -Senna and simethicone one time -Increase topirmate to 100mg HS 03/18/25: -Daily fiber supplement -Restart home buspirone 30mg bid 03/17/25: The patient was admitted to the [facility] ([facility]) on q15 min checks (behavioral with suicide precautions) for safety. The patient will participate in group, recreational, and milieu therapies and will be offered additional individual and family sessions as clinically appropriate. -Resume home medications -Hold home vilazodone -Increase topiramate to 100mg QAM, 50mg HS -Labs: A1c, fasting lipids, Vit D, Vit B12 -Questionaires: MDQ, [place] borderline PD screener Inventory Assets Strengths: fair historian, assertive Needs: improved insight, less risk taking behavior Suicide Risk Level Suicide Risk Level: Moderate (q15 min suicide checks) Risk Factors Assessment Male: No : Yes Do You Have Access To A Gun?: No Health Problems: Yes Mental Health Diagnoses: Yes Substance Use Disorders: No Previous Attempt: No Family History of Suicide: No Previous Psychiatric Hospitalization: Yes Hopelessness: No Protective Factors Assessment Bahai Beliefs: No : No Responsible for Young Children: No Employed: Yes (supposed to start a job at [employer] tomorrow) Stable Relationships: No Supportive Family: Yes Good Rapport with Provider: Yes Absence of Any Risk Factors Above: No Interval History Chief Complaint Aicha, anxiety Review of Systems Sleep Information Total Hours of Sleep: 5.5 Sleep Comments: Awoke early Meal Information Percent Meal Consumed - Breakfast: 100 Percent Meal Consumed - Lunch: 100 Percent Meal Consumed - Dinner: 100 Subjective Subjective Patient was seen & assessed and interval progress reviewed with treatment team nursing and social work She reports doing really well. Had a bad dream last and about her ex-partner. Has a family meeting with sister today. Says that she feels more calm. Met with sister and patient at the end of the meeting and answered questions. Discussed long-term plan for intensive outpatient program and DBT. Physical Exam Mental Examination Appearance: Well Groomed Eye Contact: Maintains Eye Contact Motor Behavior: Unremarkable Speech: Excessive Mood: Euthymic and Calm Affect: Congruent Thought Process: Intact Thought Content: Intact and Linear Hallucinations: None Insight: Poor (to limited) Judgement: Poor (to limited, improving) Vital Signs (Past 24 Hours) Last Vital Signs Temp 36.4 C 03/20/25 05:04 Pulse 83 03/20/25 05:05 Resp 17 03/20/25 05:04 BP 116/85 03/20/25 05:05 Pulse Ox 98 03/20/25 05:04 O2 Del Method Room Air 03/20/25 05:04 Results & Data ([facility]) Current Inpatient Medications Current Inpatient Medications: Current Inpatient Medications Acetaminophen (Acetaminophen 325 Mg Tab) 650 mg PO Q4H PRN PRN Reason: Headache or Minor Fever Stop: 04/16/25 07:00 Last Admin: 03/20/25 05:20 Dose: 650 mg Al Hydrox/Mg Hydrox/Simethicone (Aluminum/Magnesium Susp 30 Ml Udc) 30 ml PO Q4H PRN PRN Reason: GI Upset Stop: 04/16/25 07:00 Aspirin (Aspirin 81 Mg Ectab) [facility] [place] Stop: 04/16/25 09:59 Last Admin: 03/20/25 08:31 Dose: 81 mg Atorvastatin Calcium (Atorvastatin 20 Mg Tab) 20 mg PO QAM [facility] Stop: 04/16/25 09:59 Last Admin: 03/20/25 08:31 Dose: 20 mg Bismuth Subsalicylate (Bismuth Subsalicylate 262 Mg Chew) 2 tab PO Q30M PRN PRN Reason: Loose Stool/Diarrhea Stop: 04/16/25 07:00 Buspirone HCl (Buspirone 15 Mg Tab) 30 mg PO BID [facility] Stop: 04/17/25 20:59 Last Admin: 03/20/25 08:32 Dose: 30 mg Clonazepam (Clonazepam 0.5 Mg Tab) 0.5 mg PO HS [facility] Stop: 04/16/25 21:59 Last Admin: 03/19/25 21:24 Dose: 0.5 mg Cyanocobalamin (Cyanocobalamin (B-12) 100 Mcg Tablet) 100 mcg PO QAM [facility] Stop: 04/16/25 16:14 Last Admin: 03/20/25 08:32 Dose: 100 mcg Cyclobenzaprine HCl (Cyclobenzaprine Hcl 10 Mg Tab) 10 mg PO BID PRN PRN Reason: Pain Stop: 04/16/25 09:49 Last Admin: 03/19/25 22:20 Dose: 10 mg Doxycycline Hyclate (Doxycycline Hyclate 100 Mg Cap) 100 mg PO BID [facility] Stop: 03/27/25 11:59 Last Admin: 03/20/25 08:33 Dose: 100 mg Gabapentin (Gabapentin 600 Mg Tab) 600 mg PO TID [facility] Stop: 04/16/25 20:59 Last Admin: 03/20/25 08:33 Dose: 600 mg Hydroxyzine HCl (Hydroxyzine Hcl 25 Mg Tab) 50 mg PO HSZ PRN PRN Reason: Insomnia Stop: 04/16/25 07:00 Hydroxyzine HCl (Hydroxyzine Hcl 25 Mg Tab) 25 mg PO Q4H PRN PRN Reason: Anxiety Stop: 04/16/25 07:00 Lamotrigine (Lamotrigine 100 Mg Tab) 150 mg PO DAILY [facility]; Protocol Stop: 04/16/25 15:59 Last Admin: 03/20/25 08:34 Dose: 150 mg Levothyroxine Sodium (Levothyroxine Sodium 25 Mcg Tablet) 25 mcg PO DAILYBB [facility] Stop: 04/17/25 07:59 Last Admin: 03/20/25 08:31 Dose: 25 mcg Magnesium Hydroxide (Magnesium Hydroxide Susp 30 Ml Udc) 30 ml PO DAILY PRN PRN Reason: Constipation Stop: 04/16/25 07:00 Last Admin: 03/19/25 05:39 Dose: 30 ml Multivitamins/Folic Acid/Vitamin C (Multivitamin Chewable Tab) 1 tab PO QAM [facility] Stop: 04/16/25 16:14 Last Admin: 03/20/25 08:33 Dose: 1 tab Nicotine Polacrilex (Nicotine Polacrilex 2 Mg Gum) 1 piece MT Q2H PRN PRN Reason: Smoking Cessation Stop: 04/16/25 18:35 Last Admin: 03/17/25 18:52 Dose: 1 piece Ondansetron HCl (Ondansetron 4 Mg Od Tab) 4 mg PO Q6H PRN PRN Reason: Nausea Stop: 04/16/25 10:04 Last Admin: 03/20/25 08:37 Dose: 4 mg Pantoprazole Sodium (Pantoprazole 40 Mg Tab) 40 mg PO QAM [facility] Stop: 04/18/25 09:14 Last Admin: 03/20/25 08:33 Dose: 40 mg Psyllium Hydrophilic Mucilloid (Psyllium Husk 4gm Packet) 4 gm PO QAM [facility] Stop: 04/17/25 12:29 Last Admin: 03/20/25 08:33 Dose: 4 gm Sodium Chloride (Sodium Chloride 0.65% Na Soln 45 Ml ([place])) 1 - 2 sprays NA PRN PRN PRN Reason: Nasal Dryness/Congestion Stop: 04/16/25 07:00 Topiramate (Topiramate 100 Mg Tab) 100 mg PO QAM [facility] Stop: 04/16/25 09:59 Last Admin: 03/20/25 08:34 Dose: 100 mg Topiramate (Topiramate 100 Mg Tab) 100 mg PO HS [facility] Stop: 04/18/25 21:59 Last Admin: 03/19/25 21:24 Dose: 100 mg Valacyclovir HCl (Valacyclovir Hcl 500 Mg Tablet) 500 mg PO DAILY [facility] Stop: 03/27/25 09:44 Last Admin: 03/20/25 08:33 Dose: 500 mg Vitamin D (Cholecalciferol 125 Mcg (5,000 Units) Tab) 125 mcg PO QAM [facility] Stop: 04/16/25 16:14 Last Admin: 03/20/25 08:32 Dose: 125 mcg Mental Health & Subst Abuse Tx Psychiatrist Name of Psychiatrist: Sandra Aguirre Psychiatrist's Phone Number: [phone] Date Of Appointment With Psychiatric Provider: 03/24/2025 Time of Appointment with Psychiatrist: 13:00 Psychiatrist Release of Information: Obtained Therapist Name of Therapist: Senthil Corey Therapist's Phone Number: [phone] Date of Therapist Appointment: 03/25/2025 Time of Therapist Appointment: 10:30 Therapist Release of Information: Obtained Post Discharge Appointments Primary Care Physician Name Of Family Doctor/PCP: Dr. Bel SWANN
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
[2025-03-21] MEDS ORDERED: DESTROY THIS MEDICATION ONE (13:48)
[2025-03-22 18:08] LABS: MDA negative; MDEA negative; MDMA (Ecstasy) Urine, Confirm negative; Marijuana Quant, GCMS Urine 38 ng/mL (<5)
== END 2025-03-21 14:18 | disposition home or self-care (01) | DRG 918 ==
LOC: ED 19:25 → 3S 03-17 03:12